=== PATIENT | male | born 1985 | race Asian ===

== ENCOUNTER 2018-12-28 21:51 | Emergency (ER) | payer OTHER ==
[~2018-12-28] VITALS: Ht 162.6 cm; Wt 61.2 kg
--- NOTE | 2018-12-28 21:51 | NUR ---
Patient to ER bed H1 for evaluation. Side rails up.
--- NOTE | 2018-12-28 21:53 | NUR ---
ER Dr. Wade at bedside examining patient.
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
[2018-12-28 21:58] VITALS: BP_SYST 150
--- NOTE | 2018-12-28 22:00 | NUR ---
Patient given written and verbal discharge instructions and verbalizes understanding. ER MD Wade discussed with patient the results and treatment provided. Patient in stable condition. ID arm band removed. No Rx given. Patient educated on pain management and to follow up with PMD. Pain Scale 0. Opportunity for questions provided and answered. Medication side effect fact sheet provided.
[2018-12-28 22:05] VITALS: BP_SYST 150
== END 2018-12-28 22:00 | disposition home or self-care (01) ==
LOC: SED 21:51
DX: Z04.1 Encounter for examination and observation following transport accident (principal); V89.2XXA Person injured in unspecified motor-vehicle accident, traffic, initial encounter; Y93.89 Activity, other specified; Y92.89 Other specified places as the place of occurrence of the external cause; Y99.8 Other external cause status
CPT/HCPCS: 99283